=== PATIENT | female | born 1995 | race African-American/Black ===

== ENCOUNTER → 2023-06-03 | Day surgery (SDC) | payer BC | END | disposition home or self-care (01) | LOC: JRADUS-SUR 08:08 | PROVIDERS: ATTEND Family Medicine | PROC: 0H9U3ZX Drainage of Left Breast, Percutaneous Approach, Diagnostic (ICD-10-PCS; principal; 2023-06-03) | DX: D24.2 Benign neoplasm of left breast (principal) | CPT/HCPCS: 19083; 19084; 87899; 88305-TC; A4648 ==